=== PATIENT | female | born 2000 | race Caucasian/White ===

== ENCOUNTER 2018-08-22 05:00 | Emergency (ER) | payer OTHER ==
--- NOTE | 2018-08-22 05:22 | EDPHY ---
H & P Stated Complaint: right rib pain no trauma Source: Patient - Personal History LMP (Females 10-55): 1-7 Days Ago Current Tetanus/Diphtheria Vaccine: Yes Current Tetanus Diphtheria and Acellular Pertussis (TDAP): Yes - Medical/Surgical History Hx Asthma: No Hx Chronic Respiratory Disease: No Hx Diabetes: No Hx Cardiac Disease: No Hx Renal Disease: No Hx Cirrhosis: No Hx Alcoholism: No Hx HIV/AIDS: No Hx Splenectomy or Spleen Trauma: No Other PMH: denies - Social History Smoking Status: Never smoked Time Seen by Provider: 08/22/18 05:22 HPI/ROS: HPI CHIEF COMPLAINT: Right lateral rib pain worse when breathing in. HISTORY OF PRESENT ILLNESS: Patient is a 18-year-old female she is otherwise healthy without any significant medical history she presents emergency room with right lateral sharp stabbing rib pain. She reports to me she does not recall injury but she has had pain for 3 days. It is worse when she goes to sit up, worse when she brings her right arm over her chest. Also worse when she takes deep breath in. Worse when she coughs. She denies any hemoptysis, denies any shortness of breath, denies any left-sided chest pain, no fever. No history of DVT or PE. She is on control. It does seem to be reproduced when she goes to sit up. She reports to me she has been doing a lot yellow recently and may be of injured her ribs. But no direct trauma. Past Medical History: Denies medical history Past Surgical History: Denies surgical history Social History: Denies drugs alcohol tobacco. Family History: Noncontributory ROS REVIEW OF SYSTEMS: 10 Systems were reviewed and negative with the exception of the elements mentioned in the history of present illness. Exam Constitutional triage nursing summary reviewed, vital signs reviewed, awake/ alert. Eyes normal conjunctivae and sclera, EOMI, PERRLA. HENT normal inspection, atraumatic, moist mucus membranes, no epistaxis, neck supple/ no meningismus, no raccoon eyes. Respiratory clear to auscultation bilaterally, normal breath sounds, no respiratory distress, no wheezing. Cardiovascular mild tender palpation right lateral chest wall, no abdominal pain on exam, rate normal, regular rhythm, no murmur, no edema, distal pulses normal. Gastrointestinal soft, non-tender, no rebound, no guarding, normal bowel sounds, no distension, no pulsatile mass. Genitourinary no CVA tenderness. Musculoskeletal no midline vertebral tenderness, full range of motion, no calf swelling, no tenderness of extremities, no meningismus, good pulses, neurovascularly intact. Skin pink, warm, & dry, no rash, skin atraumatic. Neurologic awake, alert and oriented x 3, AAOx3, moves all 4 extremities equally, motor intact, sensory intact, CN II-XII intact, normal cerebellar, normal vision, normal speech. Psychiatric normal mood/affect. Heme/Lymph/Immune no lymphadenopathy. Differential Diagnosis: Differential diagnosis includes but is not limited to: ACS, atypical chest pain, pneumothorax, pneumonia, pulmonary embolism, aortic dissection, congestive heart failure, tumor, musculoskeletal pain, esophageal pain, GERD, peptic ulcer disease, pancreatitis Medical Decision Making: Plan for this patient IV establishment, IV Toradol, IV fluids, two view chest x-ray basic labs, and re-evaluate. Rule out PE rule out pneumonia rule out pneumothorax. Could be rib fractures or costochondritis. Re-evaluation: D-dimer negative. Chest x-ray: Negative for acute cardiopulmonary disease. No evidence of pneumothorax or rib fracture. Image interpreted by myself. Two view chest x- ray. 7:32 a.m. patient re-evaluated she is resting comfortably. She feels much better after IV Toradol. Her pain is well controlled. She has a negative D- dimer, her chest x-ray shows no pneumothorax or infiltrate. Troponin is still pending. She does not have any left-sided chest pain she had reproducible right lateral chest pain that was sharp stabbing worse when she goes to sit up on worse when she moves her right arm. Also worse when she takes a deep breath in. I believe this to be musculoskeletal. Feeling much better after IV Toradol. I do recommend she takes Tylenol/Motrin over the next 72 hr. Additionally return emergency room she develops worsening pain fever vomiting or not doing well. This was reproducible on exam specially when you palpate her right lateral chest , also when she goes to sit up or move her right arm. Indicating is most likely musculoskeletal pain. Trop 0.012 EKG interpretation by me on record in [facility] system. Impression time of EKG 7:45 a.m., sinus rhythm rate of 78 nonspecific T-wave abnormalities V1 V2 V3 no ST elevation. [id number]: Signed over to Dr. Bean, repeat trop/ekg. Initial trop and ddimer negative CXR okay. Better after toradol. most likely msk pain. EKg has non specific T waves. Plan to repeat ekg/trop Signed over to Dr. Bean. He will re-eval patient, repeat ekg/trop Abd soft nt. (Wily Leary) Constitutional: Initial Vital Signs Temperature (C) 37.1 C 08/22/18 05:03 Heart Rate 87 08/22/18 05:03 Respiratory Rate 16 08/22/18 05:03 Blood Pressure 99/71 L 08/22/18 05:03 O2 Sat (%) 96 08/22/18 05:03 O2 Delivery Mode Room Air Allergies/Adverse Reactions: No Known Allergies Allergy (Unverified 08/22/18 05:05) Home Medications: Medication Instructions Recorded Ibuprofen [Motrin (*)] 800 mg PO Q6-8PRN #10 tab 08/22/18 Sertraline HCl 08/22/18 Wellbutrin Sr 08/22/18 Medical Decision Making - Diagnostics Imaging Results: Imaging Impressions Chest X-Ray 08/22/18 05:28 Impression: No acute pulmonary disease. ED Course/Re-evaluation: 9:45 a.m. Repeat troponin negative. Repeat EKG unchanged. Patient states that she is feeling much better. She thinks that maybe she pulled her rib muscle during yoga. We discussed follow-up and indications for returning. She feels comfortable with this plan and is eager to go home. She is ambulating here in the department without any difficulty. (Duncan Bean) - Data Points Laboratory Results: Laboratory Results 08/22/18 05:45 08/22/18 05:45 08/22/18 08/22/18 08/22/18 09:19 06:15 05:45 WBC RBC Hgb Hct MCV MCH MCHC RDW Plt Count MPV Neut % (Auto) Lymph % (Auto) [place] % (Auto) Eos % (Auto) Baso % (Auto) Nucleat RBC Rel Count Absolute Neuts (auto) Absolute Lymphs (auto) Absolute Monos (auto) Absolute Eos (auto) Absolute Basos (auto) Absolute Nucleated RBC Immature Gran % Immature Gran # PT 13.8 SEC SEC (12.0-15.0) INR 1.10 (0.83-1.16) APTT 26.7 SEC SEC (23.0-38.0) D-Dimer < 0.27 ug/mLFEU ug/mLFEU (0.00-0.50) Sodium Potassium Chloride Carbon Dioxide Anion Gap BUN Creatinine Estimated GFR Glucose Calcium Magnesium Total Bilirubin Conjugated Bilirubin Unconjugated Bilirubin AST ALT Alkaline Phosphatase POC Troponin I 0.02 ng/mL ng/mL (0.00-0.08) Troponin I NT-Pro-B Natriuret Pep Total Protein Albumin Lipase Beta HCG, Qual NEGATIVE 08/22/18 08/22/18 08/22/18 05:45 05:45 05:35 WBC 9.19 10^3/uL 10^3/uL (3.80-9.50) RBC 4.41 10^6/uL 10^6/uL (4.18-5.33) Hgb 14.7 g/dL g/dL (12.6-16.3) Hct 43.0 % % (38.0-47.0) MCV 97.5 fL fL (81.5-99.8) MCH 33.3 pg pg (27.9-34.1) MCHC 34.2 g/dL g/dL (32.4-36.7) RDW 12.0 % % (11.5-15.2) Plt Count 245 10^3/uL 10^3/uL (150-400) MPV 10.3 fL fL (8.7-11.7) Neut % (Auto) 73.5 % % (39.3-74.2) Lymph % (Auto) 16.9 % % (15.0-45.0) [place] % (Auto) 8.7 % % (4.5-13.0) Eos % (Auto) 0.4 % L % (0.6-7.6) Baso % (Auto) 0.2 % L % (0.3-1.7) Nucleat RBC Rel Count 0.0 % % (0.0-0.2) Absolute Neuts (auto) 6.75 10^3/uL H 10^3/uL (1.70-6.50) Absolute Lymphs (auto) 1.55 10^3/uL 10^3/uL (1.00-3.00) Absolute Monos (auto) 0.80 10^3/uL 10^3/uL (0.30-0.80) Absolute Eos (auto) 0.04 10^3/uL 10^3/uL (0.03-0.40) Absolute Basos (auto) 0.02 10^3/uL 10^3/uL (0.02-0.10) Absolute Nucleated RBC 0.00 10^3/uL 10^3/uL (0-0.01) Immature Gran % 0.3 % % (0.0-1.1) Immature Gran # 0.03 10^3/uL 10^3/uL (0.00-0.10) PT INR APTT D-Dimer Sodium 139 mEq/L mEq/L (135-145) Potassium 4.1 mEq/L mEq/L (3.5-5.2) Chloride 104 mEq/L mEq/L (97-110) Carbon Dioxide 22 mEq/l mEq/l (22-31) Anion Gap 13 mEq/L mEq/L (6-14) BUN 14 mg/dL mg/dL (7-23) Creatinine 0.6 mg/dL mg/dL (0.6-1.0) Estimated GFR > 60 Glucose 101 mg/dL H mg/dL (70-100) Calcium 9.5 mg/dL mg/dL (8.5-10.4) Magnesium 1.7 mg/dL mg/dL (1.6-2.3) Total Bilirubin 0.8 mg/dL mg/dL (0.1-1.4) Conjugated Bilirubin 0.1 mg/dL mg/dL (0.0-0.5) Unconjugated Bilirubin 0.7 mg/dL mg/dL (0.0-1.1) AST 21 IU/L IU/L (14-46) ALT 33 IU/L IU/L (9-52) Alkaline Phosphatase 62 IU/L IU/L (38-126) POC Troponin I Troponin I < 0.012 ng/mL ng/mL (0.000-0.034) NT-Pro-B Natriuret Pep 40 pg/mL pg/mL (0-125) Total Protein 6.9 g/dL g/dL (6.3-8.2) Albumin 4.2 g/dL g/dL (3.5-5.0) Lipase 56 IU/L IU/L (23-300) Beta HCG, Qual Medications Given: Discontinued Medications Sodium Chloride (Ns) 1,000 mls @ 0 mls/hr IV EDNOW ONE; Wide Open PRN Reason: Protocol Stop: 08/22/18 05:29 Last Admin: 08/22/18 05:49 Dose: 1,000 mls Sodium Chloride (Ns) 1,000 mls @ 0 mls/hr IV ONCE ONE PRN Reason: Wide Open Stop: 08/22/18 07:57 Last Admin: 08/22/18 08:00 Dose: 1,000 mls Ketorolac Tromethamine (Toradol) 30 mg IVP EDNOW ONE Stop: 08/22/18 05:30 Last Admin: 08/22/18 05:50 Dose: 30 mg Point of Care Test Results: Chemistry 08/22/18 09:19 POC Troponin I 0.02 ng/mL ng/mL (0.00-0.08) Departure - Departure Disposition: Home, Routine, Self-Care Clinical Impression: Rib pain on right side Condition: Good Instructions: Thoracic Pain (ED), Chest Wall Pain (ED) Additional Instructions: 1. Recommend alternating Tylenol Motrin for pain control. 2. Return to the emergency room if develops worsening pain questions or concerns. 3. You have an abnormal ekg, please follow up with Cardiology. Referrals: [facility] [Other] - As per Instructions Luis Elise MD [Medical Doctor] - As per Instructions Prescriptions: Ibuprofen [Motrin (*)] 800 mg PO Q6-8PRN #10 tab
[2018-08-22] MEDS ORDERED: NS 1,000 ML IV ONE ×2 (05:28→07:56)
[2018-08-22] MEDS ORDERED: KETOROLAC 30 MG/1 ML SDV IVP ONE (05:29)
[2018-08-22 06:01] LABS: PLATELET COUNT 245 10^3/uL (150-400)
[2018-08-22 06:40] LABS: PROTIME(PATIENT) 13.8 SEC (12.0-15.0)
--- NOTE | 2018-08-22 08:42 | CPEKG ---
Test Reason : OPEN Blood Pressure : / mmHG Vent. Rate : 078 BPM Atrial Rate : 075 BPM P-R Int : 129 ms QRS Dur : 086 ms QT Int : 403 ms P-R-T Axes : 068 070 037 degrees QTc Int : 460 ms Sinus rhythm Nonspecific T abnormalities, anterior leads Confirmed by Duncan Bean ([id number]) on 08/22/2018 8:42:06 AM Referred By: Wily Leary Confirmed By:Duncan Bean
--- NOTE | 2018-08-22 08:53 | CPEKG ---
Test Reason : OPEN Blood Pressure : / mmHG Vent. Rate : 060 BPM Atrial Rate : 060 BPM P-R Int : 111 ms QRS Dur : 084 ms QT Int : 434 ms P-R-T Axes : -17 057 033 degrees QTc Int : 434 ms Sinus rhythm Abnormal T, consider ischemia, anterior leads Confirmed by Melissa Wong ([id number]) on 08/22/2018 8:53:26 AM Referred By: MELISSA WONG Confirmed By:Melissa Wong
[2018-08-22 09:57] VITALS: BP 109/80
== END 2018-08-22 09:56 | disposition home or self-care (01) ==
DX: R07.81 Pleurodynia (principal); E86.9 Volume depletion, unspecified
CPT/HCPCS: 84484-ER; 96374; J1885